=== PATIENT | male | born 1965 ===

== ENCOUNTER 2018-09-01 17:49 | Emergency (ER) | payer SELFPAY ==
[2018-09-01 17:49] VITALS: BMI 28.2
[2018-09-01 18:04] VITALS: BP 126/80; PULSE 80; RESP 18; TEMP 97.8; O2SAT 99
--- NOTE | 2018-09-01 18:42 | C.PDOC ---
History Of Present Illness 53 year old male with a history of arthritis and DVT in right leg presents to the emergency department with complaints of four days of right knee pain. Pain is worse with ambulation. Notes that this feels different than the pain with the DVT, states that his pain is felt in his "bone". Pt takes Lovenox regularly for 1.5 years, and he gets bloodwork done every 6 months. He admits to taking an unknown painkiller at home prior to arrival. Denies trauma, change in sensation, sob, chest pain , skin changes, or leg swelling. Time Seen by Provider: 09/01/18 18:09 Chief Complaint (Nursing): Lower Extremity Problem/Injury History Per: Patient History/Exam Limitations: no limitations Onset/Duration Of Symptoms: Days (4) Current Symptoms Are (Timing): Still Present Past Medical History Reviewed: Historical Data, Nursing Documentation, Vital Signs Vital Signs: Last Vital Signs Temp 97.8 F 09/01/18 18:02 Pulse 80 09/01/18 18:02 Resp 18 09/01/18 18:02 BP 126/80 09/01/18 18:02 Pulse Ox 99 09/01/18 18:02 - Medical History PMH: Arthritis (b/l knees), Deep Vein Thrombosis (R leg), Hypercholesterolemia (NO LONGER TAKING MEDICATION), Pulmonary Embolism Surgical History: No Surg Hx Family History: States: No Known Family Hx - Social History Hx Alcohol Use: No Hx Substance Use: No - Immunization History Hx Tetanus Toxoid Vaccination: No Hx Influenza Vaccination: No Hx Pneumococcal Vaccination: No Review Of Systems Except As Marked, All Systems Reviewed And Found Negative. Musculoskeletal: Positive for: Other (right knee) Neurological: Negative for: Weakness, Numbness Physical Exam - Physical Exam Appears: Well, Non-toxic, No Acute Distress Skin: Normal Color, Warm, Dry Head: Atraumatic, Normacephalic Eye(s): bilateral: Normal Inspection, EOMI Nose: Normal Oral Mucosa: Moist Neck: Normal ROM, Supple Chest: Symmetrical Respiratory: No Accessory Muscle Use, Other (speaking in complete sentences.) Extremity: Normal ROM (all extermities), No Tenderness, No Calf Tenderness, Capillary Refill (<2 sec), No Swelling, Other (compression stockings on) Pulses: Left Dorsalis Pedis: Normal, Right Dorsalis Pedis: Normal Neurological/Psych: Oriented x3, Normal Sensation ED Course And Treatment O2 Sat by Pulse Oximetry: 99 (RA) Pulse Ox Interpretation: Normal - Other Rad Right knee xr X-Ray: Viewed By Me, Read By Radiologist Interpretation: Accession No. : [id number]. Patient Name / ID : SHER PAUL / [id number]. Exam Date : 09/01/2018 18:25:05 ( Approved ). Study Comment : Sex / Age : M / 53Y. Creator : Jasmin So. Dictator : Eva Johnson MD. Starch Cooker : Material Checker : Eva Johnson MD. Approver2 : Report Date : 09/01/2018 18:31:12. My Comment : . Date of service: 09/01/2018. PROCEDURE: Right Knee Radiographs. HISTORY: pain. COMPARISON: None. FINDINGS: BONES: Normal. No fracture. JOINTS: Mild osteoarthritis. JOINT EFFUSION: None. OTHER FINDINGS: None. IMPRESSION: No evidence of acute fracture or dislocation. Mild osteoarthritis. Progress Note: Plan: XR Right Knee. Pt was instructed RICE and follow up with ortho in 1-2 days. Case discussed with Dr Paul , agreed upon plan and discharge. Disposition - Disposition Referrals: Gisell Zepeda MD [Staff Provider] - Disposition: HOME/ ROUTINE Disposition Time: 18:51 Condition: STABLE Additional Instructions: Rest and ice the area. Follow up with the PMD in 1-2 days. 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 - Scribe Statement The provider has reviewed the documentation as recorded by the Scribe (Jason Jaimeqvi) All medical record entries made by the Scribe were at my direction and personally dictated by me. I have reviewed the chart and agree that the record accurately reflects my personal performance of the history, physical exam, medical decision making, and the department course for this patient. I have also personally directed, reviewed, and agree with the discharge instructions and disposition.
[2018-09-01] MEDS ORDERED: Naproxen 550 mg Tab PO STA (18:52)
--- NOTE | 2018-09-01 19:31 | RAD ---
Date of service: 09/01/2018 PROCEDURE: Right Knee Radiographs. HISTORY: pain COMPARISON: None. FINDINGS: BONES: Normal. No fracture. JOINTS: Mild osteoarthritis JOINT EFFUSION: None. OTHER FINDINGS: None. IMPRESSION: No evidence of acute fracture or dislocation. Mild osteoarthritis.
== END 2018-09-01 18:56 | disposition home or self-care (01) ==
LOC: C.ER 17:49
DX: M25.561 Pain in right knee (principal); E78.00 Pure hypercholesterolemia, unspecified